=== PATIENT | male | born 1965 | race Caucasian/White ===

== ENCOUNTER 2016-06-20 11:06 | Day surgery (SDC) | payer OTHER ==
[~2016-06-20] VITALS: Ht 188 cm; Wt 120.2 kg
[~2016-06-20 11:06] MED LIST: Sodium Chloride LOK Flush 10 mL Syringe IV PRN; fentaNYL-PF 50 mCg/mL 2 mL Inj IVPUSH PRN
[2016-06-20 11:28] VITALS: BP 134/87; PULSE 67; RESP 12; O2SAT 97
[2016-06-20] MEDS: 0.9% Sodium Chloride 1,000 ML IV SCH ×2 (11:52→12:07)
[2016-06-20 12:20] VITALS: BP 124/82; PULSE 66; RESP 14; O2SAT 95
[2016-06-20 12:29] VITALS: BP 122/74; PULSE 68; RESP 16; O2SAT 95
[2016-06-20 12:40] VITALS: BP 121/77; PULSE 69; RESP 16; O2SAT 96
--- NOTE | 2016-06-20 16:23 | ENDO ---
[address] [address] ENDOSCOPY PROCEDURE PATIENT: JESSICA CARBAJAL : 1965 MR#: [id number] ADMIT: 06/20/2016 JOB ID: [id number] PRIMARY PROVIDER: DIANNE Camp. PROCEDURE: Colonoscopy with hot snare polypectomy. INDICATIONS: A 50-year-old male who reports for colon cancer screening. EQUIPMENT: PCF-RoomReveal0 DL. SEDATION: Five mg Versed, 100 mcg fentanyl. COMPLICATIONS: None identified. BOWEL PREPARATION: Fair. Adequate exam. PROCEDURE INFORMATION: After the risks and benefits were explained, written and verbal informed consent was obtained. The patient was brought into the endoscopy suite and placed into the left lateral decubitus position. Sedation was achieved using the above-stated medications with the addition of oxygen via nasal cannula. Digital rectal examination was accomplished. No significant pathology appreciated. The scope was introduced into the rectum and advanced under direct visualization to the level of the cecum, as identified by the appendiceal orifice and ileocecal valve. The scope was slowly withdrawn to carefully examine the mucosa for any defects or lesions. Retroflexed views were avoided in the rectum. Multiple direct views were made through the dentate line for exclusion of pathology. The colon was decompressed. The scope removed from the patient who tolerated the procedure well. FINDINGS: In the ascending colon, there was an approximately 1 cm pedunculated polyp, removed with hot snare. After its removal, I had to section this polyp in two in order for it to be aspirated through the accessory channel of the scope. No other significant pathology was appreciated throughout. ENDOSCOPIC DIAGNOSES: Colon polyp. RECOMMENDATIONS: 1. Await histopathology. 2. Repeat colonoscopy, three years.
--- NOTE | 2016-06-23 15:11 | PATH ---
SURGICAL PATHOLOGY Attending Physician:Jl Chamorro CASE STATUS: Signed Out PATIENT NAME: JESSICA CARBAJAL PID: [id number] : 1965 DATE COLLECTED:06/20/2016 22:32 SPECIMEN: Colon, Biopsy CLINICAL HISTORY: 1). ASCENDING COLON POLYP FINAL DIAGNOSIS: 1.ASCENDING COLON POLYP: INFLAMMATORY POLYP. NEGATIVE FOR DYSPLASIA AND MALIGNANCY. ICD10 CODE K63.5 GROSS DESCRIPTION: The specimen is received in one formalin filled container labeled with the patient's name, sublabeled "ascending colon polyp" and consists of multiple portions of tissue which aggregate to 0.6 x 0.6 0.5 CM. The specimen is entirely submitted in one cassette. 06/20/2016 DAC MICRO DESCRIPTION: Multiple microscopic levels are examined. Please see diagnosis. ICD-9 CODES: CPT CODES: 1: 64028 Electronically Signed Out Erika Bonner MD Located Within [facility] Pathology [facility] [address], [place] [address] Technical component performed at [facility], [facility] [address], [address]
== END 2016-06-20 23:59 | disposition home or self-care (01) ==
LOC: END 11:06
PROVIDERS: ATTEND Internal Medicine Gastroenterology
DX: Z12.11 Encounter for screening for malignant neoplasm of colon (principal); K63.5 Polyp of colon; M19.90 Unspecified osteoarthritis, unspecified site
CPT/HCPCS: 45385; J2250; J7030